=== PATIENT | male | born 1980 | race Caucasian/White ===

== ENCOUNTER 2021-06-08 02:05 | Inpatient (IN) | payer OTHER, SELFPAY ==
--- NOTE | ~2021-06-08 | XR_ITS ---
XR abdomen NG/feed tube insert DATE: 06/08/2021 06:32 INDICATION: NG tube insertion TECHNIQUE: Portable upright AP abdomen on 06/08/2021 at 0627 hours COMPARISON: 06/04/2021 CT abdomen pelvis FINDINGS: NG tube extends approximately 8.5 cm into the proximal stomach, the proximal side-port situ ated at the diaphragmatic hiatus. Advancement of the tube is recommended. There is gaseous distention of small bowel with air-fluid levels. The psoas shadows are intact. No visceromegaly is evident. The lung bases appear clear. IMPRESSION: NG tube in proximal stomach, proximal side-port at diaphragmatic hiatus; tube advancement is recommended. Reviewed, dictated and finalized at [facility] Reviewed, dictated and finalized at [facility]. [facility] SORTER IMPRESSION: NG tube in proximal stomach, proximal side-port at diaphragmatic hi atus; tube advancement is recommended.
--- NOTE | ~2021-06-08 | CT_ITS ---
EXAMINATION: CT abdomen pelvis w con DATE: 06/08/2021 03:27 INDICATION: Abdominal pain, emesis TECHNIQUE: Computed tomography (CT) of the abdomen and pelvis was performed with 100 cc Omnipaque 350 intravenous contrast. Automated exposure control and iterative reconstruction technique were employe d. Exam dose: 811.02 mGy-cm total exam DLP. COMPARISON: None. FINDINGS: The lung bases are clear. Normal heart size. No pericardial or pleural effusion. 11 mm 13 mm stones are noted in the dependent aspect of the gallbladder. No gallbladder wall thickeni ng or pericholecystic fluid or fat stranding or bile duct or pancreatic duct dilatation is evident. No hepatic, splenic or pancreatic space-occupying mass lesion is detected. No pancreatic calcificatio n. No splenomegaly. Normal morphology of the adrenal glands. No renal mass lesion or urinary tract calculus or hydroureteronephrosis. Normal caliber of the abdominal aorta. No intraperitoneal or retroperitoneal or pelvic mass lesion or adenopathy or ascites. There are numerous fluid containing nondilated small bowel segments, with multiple small air-fluid le vels, with transition point in the left lower quadrant anteriorly.. Normal appendix. No bowel wall thickening, pneumatosis or intraperitoneal free air. The urinary bladder and prostate gland are unremarkable. IMPRESSION: Large intermediate grade small bowel obstruction in the anterior left lower quadrant susan barry enteritis or adynamic ileus Normal appendix Cholelithiasis Reviewed, dictated and finalized at [facility] Reviewed, dictated and finalized at [facility]. ER DEVELOPMENT DIRECTOR IMPRESSION: Large intermediate grade small bowel obstruction in the anterior l eft lower quadrant versus enteritis or adynamic ileus Normal appendix Cholelithiasis
[2021-06-08 02:07] VITALS: BP 171/105; PULSE 67; RESP 16; TEMP 36.9; O2SAT 100
--- NOTE | 2021-06-08 02:16 | ED.ABDPAIN ---
HPI - Abdominal Pain General Chief Complaint: Abdominal Pain Stated Complaint: abdominal pain Time Seen by Provider: 06/08/21 02:15 Source: patient Mode of arrival: ambulatory Limitations: no limitations History of Present Illness HPI narrative: Patient is a 40-year-old male complaining of abdominal pain, mid abdomen, dull, 8 out of 10, nonradiating accompanied by nausea and vomiting started tonight. Patient denies any chest pain, shortness of breath, diarrhea, urinary symptoms, fever or chills. Related Data Allergies Allergy/AdvReac Type Severity Reaction Status Date / Time No Known Allergies Allergy Verified 06/08/21 03:10 Review of Systems Review of Systems: All systems reviewed & are unremarkable except as noted in HPI and below Constitutional: Constitutional: Denies body ache(s), Denies chills, Denies excessive sweating, Denies fatigue, Denies fever(s), Denies headache(s), Denies lethargy, Denies malaise, Denies weakness and Denies weight loss Eyes: Eyes: Denies blurry vision, Denies change in vision and Denies loss of vision ENT: Denies dizziness, Denies ear discharge, Denies headache(s), Denies lip swelling, Denies epistaxis, Denies nasal congestion, Denies neck pain, Denies throat swelling and Denies tongue swelling Cardiovascular: Cardiovascular: Denies chest pain, Denies chest pain at rest, Denies chest pain with activity, Denies diaphoresis, Denies rapid heart rate, Denies edema, Denies irregular heart rhythm, Denies lightheadedness, Denies palpitations, Denies dyspnea and Denies dyspnea on exertion Respiratory: Respiratory: Denies chest congestion, Denies cough, Denies hemoptysis, Denies dyspnea and Denies dyspnea on exertion Gastrointestinal: Gastrointestinal: Denies melena, Denies hematochezia, Denies diarrhea and Denies hematemesis Musculoskeletal: Musculoskeletal: Denies abnormal gait, Denies deformity, Denies joint swelling, Denies limited range of motion, Denies neck pain and Denies numbness Neurologic: Denies Abnormal speech present, Denies abnormal gait, Denies confusion, Denies dizziness, Denies headache(s), Denies focal weakness, Denies loss of vision, Denies numbness, Denies Other visual disturbances, Denies Sensory deficit (Neuro) and Denies weakness Psychiatric: Psychiatric: Denies confusion, Denies depression, Denies auditory hallucinations, Denies homicidal ideation and Denies suicidal ideation Endocrine: Endocrine: Denies cold intolerance, Denies excessive sweating, Denies fatigue, Denies heat intolerance and Denies palpitations Hematologic/Lymphatic: Hematologic/Lymphatic: Denies easy bleeding and Denies easy bruising Allergic/Immunologic: Allergic/Immunologic: Denies lip swelling, Denies throat swelling and Denies tongue swelling PMFSH Comments Past medical history: None Family history: None Social history: Non-smoker no EtOH or drug use Exam Const: General: cooperative, healthy appearing, comfortable, no acute distress, well developed, alert and awake; No confusion Orientation/consciousness: oriented to person, oriented to place, oriented to time, patient oriented x3 and No confusion Limitations: no limitations HENMT: Head: normal to inspection, normocephalic and atraumatic Ears: hearing grossly normal bilaterally, TM normal on the right and TM normal on the left General nose exam: Normal external nose present, Normal nares present and No nasal discharge present Face and sinus: normal facial exam Mouth: Yes Normal oral and palatal mucosa present, Yes lip normal, Yes tongue normal and Yes oropharynx normal Throat: posterior oropharynx normal, tonsils normal and uvula midline Eyes: General: appearance normal, both eyes and all related structures Pupils: Equal, round and reactive pupils present EOM: EOMs intact bilaterally Neck: Neck: normal visual inspection, full ROM, no lymphadenopathy and no meningeal signs Chest: Chest palpation & inspection: normal inspection of the chest Resp: Effo
[2021-06-08] MEDS: SODIUM CHLORIDE 0.9% IV 1,000 ML 999 ML IV CONT (02:37)
[2021-06-08 02:49] LABS: Basophils Absolute Auto 0.1 K/mm3 (0.0-0.1); Basophils Percent Auto 0.3 % (0.2-1.2); Eosinophils Absolute Auto 0.1 K/mm3 (0-0.3); Eosinophils Percent Auto 0.4 % (0-4.4); Hematocrit 47.4 % (42.0-52.0); Hemoglobin 16.4 g/dL (14.0-18.0); Immature Granulocyte Absolute 0.09 K/mm3 (0.00-0.031); Immature Granulocyte Percent A 0.5 % (0-0.5); Lymphocytes Percent Auto 13.8 % (18.3-44.2); Mean Corpuscular HGB Conc 34.6 g/dl (32-36); Mean Corpuscular Hemoglobin 33.3 pg (26-34); Mean Corpuscular Volume 96.3 fl (80-100); Mean Platelet Volume 11.5 fl (7.4-10.4); Monocytes Absolute Auto 0.9 K/mm3 (0.1-0.6); Monocytes Percent Auto 4.7 % (2.6-8.5); Neutrophils Absolute Auto 14.5 K/mm3 (1.3-6.7); Neutrophils Percent Auto 80.3 % (45.5-73.1); Platelet Count Result 200 k/mm3 (150-375); Red Blood Count 4.92 M/mm3 (4.6-6.20); Red Cell Distribution Width 13.1 % (11.5-14.5); White Blood Count 18.1 K/mm3 (4.5-10.0)
[2021-06-08 03:01] LABS: Alanine Aminotransferase 29 U/L (4-50); Albumin Level 4.5 g/dL (3.5-5.1); Alkaline Phosphatase 115 U/L (38-126); Anion Gap 9 mmol/L (8-16); Aspartate Amino Transferase 26 U/L (17-59); Bilirubin,Total 0.4 mg/dL (0.2-1.3); Blood Urea Nitrogen 8 mg/dL (9-20); Calcium 9.1 mg/dL (8.4-10.2); Carbon Dioxide 24 mmol/L (22-30); Chloride 106 mmol/L (98-107); Estimated CRCL calculation 116 ml/min; Estimated Glomerular Filt Rate > 60; Glucose 142 mg/dL (65-110); Lipase 183 U/L (23-300); Potassium 3.7 mmol/L (3.4-5.0); Sodium 139 mmol/L (137-145)
[2021-06-08 03:03] LABS: Lactic Acid Reflex 1.7 mmol/L (0.7-2.1)
[2021-06-08] MEDS: MORPHINE SULFATE (*CRX) 2 MG/ML INJ IV PUSH (03:10)
[2021-06-08] MEDS: PROMETHAZINE HCL 25 MG/ML AMPUL 12.5 MG IV PUSH (03:12)
[2021-06-08] MEDS: LACTATED RINGERS 1,000 ML 125 ML IV CONT ×2 (05:02→13:43)
[2021-06-08 05:05] VITALS: BP 165/93; PULSE 65; RESP 22; O2SAT 98
[2021-06-08] MEDS: HYDROmorphone HCL INJ (*CRX) 1 MG/ML SYR 0.5 MG IV PUSH (05:06)
--- NOTE | 2021-06-08 06:01 | PC.NURSE ---
attempted to call report nurse will call back
[2021-06-08 06:16] VITALS: BP 163/95; PULSE 65; RESP 18; O2SAT 98
[2021-06-08 07:27] VITALS: BP 158/86; PULSE 63; RESP 18; TEMP 36.7; O2SAT 99
--- NOTE | 2021-06-08 07:43 | PC.NURSE ---
0650 Pt arrived from the ED to room 321. DX bowel obstruction. Pt has NG tube in the right nare, connected to low intermittent suction. Pt denies discomfort at this time. Pt encouraged to inform nurse if need assist with anything and plan of care discussed, verbalize understanding. No acute distress noted.
[2021-06-08 08:00] VITALS: O2SAT 98; BMI 29.9
--- NOTE | 2021-06-08 09:09 | PM.IMHP ---
H&P: HPI History of Present Illness Date/Time: 06/08/21 09:09 The patient is a 40-year-old male presenting to the emergency department complaining of severe crampy abdominal pain, intractable nausea and vomiting. The patient reports he felt bloated and full during the day yesterday, however was able to tolerate food and had a normal bowel movement. The patient denies any pain during the day yesterday. The patient reports that approximately 10:00 p.m. he developed severe crampy abdominal pain that was diffuse in nature. The patient tried some prune juice, which actually made the pain worse. The patient had multiple episodes of nausea and vomiting. The patient reports he tried an enema without results. The patient denies any previous episodes in the past. Chief Complaint: Abdominal pain, nausea and vomiting Review of Systems Constitutional: Constitutional: Denies anorexia, Denies chills, Reports fatigue, Denies fever(s), Reports lethargy, Denies malaise, Denies poor appetite, Denies weakness, Denies weight gain and Denies weight loss Eyes: Eyes: Reports no additional eye complaints ENT: Reports system reviewed and no additional complaints, except as documented Cardiovascular: Cardiovascular: Reports no additional cardiovascular complaints Respiratory: Respiratory: Reports no additional respiratory complaints Gastrointestinal: Gastrointestinal: Reports as per HPI, Reports abdominal pain, Reports belching, Reports bloating, Reports GI cramping, Reports early satiety, Reports nausea and Reports vomiting Genitourinary: Genitourinary: Reports no additional male genitourinary complaints Musculoskeletal: Musculoskeletal: Reports no additional musculoskeletal complaints Integumentary/Breasts: Skin/Breast: Reports system reviewed and no additional complaints, except as docu Neurologic: Reports system reviewed and no additional complaints, except as documented Psychiatric: Psychiatric: Reports no additional psychiatric complaints Endocrine: Endocrine: Reports no additional endocrine complaints Hematologic/Lymphatic: Hematologic/Lymphatic: Reports no additional hematologic/lymphatic complaints Allergic/Immunologic: Allergic/Immunologic: Reports no additional allergic/immunologic complaints PMFSH Comments PMH - none Surgery - no abd surgeries FH - no FH of CRC, IBD SH - denies tobacco use, no ilicit drugs Meds Home Medications and Allergies Allergies Allergy/AdvReac Type Severity Reaction Status Date / Time No Known Allergies Allergy Verified 06/08/21 03:10 Vital Signs Vital Signs - 24 hr 06/08/21 02:07 06/08/21 05:05 06/08/21 06:16 Temperature 36.9 C Pulse Rate 67 65 65 Respiratory Rate 16 22 H 18 Blood Pressure 171/105 H 165/93 H 163/95 H Pulse Oximetry 100 98 98 06/08/21 07:27 Temperature 36.7 C Pulse Rate 63 Respiratory Rate 18 Blood Pressure 158/86 H Pulse Oximetry 99 Exam Const: General: cooperative, comfortable and no acute distress Nutritional Appearance: obese Orientation/consciousness: patient oriented x3 Limitations: no limitations HENMT: Head: normal to inspection, normocephalic and atraumatic Ears: hearing grossly normal bilaterally General nose exam: Normal external nose present Face and sinus: normal facial exam Mouth: Yes Normal oral and palatal mucosa present and Yes moist mucous membranes Eyes: General: appearance normal, both eyes and all related structures Pupils: Equal, round and reactive pupils present EOM: EOMs intact bilaterally Neck: Neck: normal visual inspection, full ROM and no lymphadenopathy Chest: Chest palpation & inspection: normal inspection of the chest Resp: Effort & Inspection: normal respiratory effort Auscultation: clear to auscultation bilaterally Cardio: Rate: regular rate Rhythm: regular rhythm GI: Inspection: normal to inspection and distended GI Palp: Yes abdominal tenderness, No Tenderness to palpation present (GI), No Guarding due to palpat
--- NOTE | 2021-06-08 09:26 | ADMGEN ---
This patient, Jase Wong, was admitted to [facility] Surg Room 321-02 at 0650. Patient/family oriented to hospital policies and general routines including ID bracelet, bed and alarms, visiting hours, pain management, procedures, bathroom and other care routines, personal items, smoking policy, room service/diet, and visiting hours. Information on how to activate the Rapid Response Team has been discussed. Patient/Family are encouraged to report perceived risks to care and to ask questions if they do not understand what they are told or what they should do.
[2021-06-08 14:00] VITALS: BP 152/90; PULSE 93; RESP 16; TEMP 37.2; O2SAT 95
[2021-06-08] MEDS: BISACODYL 5 MG TABLET EC 10 MG PO (16:20)
--- NOTE | 2021-06-12 13:28 | P.DS_ITS ---
DS: Admitting Diagnosis Discharge Date 06/08/21 Admitting Diagnosis Small-bowel obstruction DS: Discharge Diagnosis Discharge Diagnosis (1) Small bowel obstruction: Code(s): K56.609 - Unspecified intestinal obstruction, unspecified as to partial versus complete obstruction Status: Acute Assessment and Plan: likely secondary to viral gastroenteritis, symptoms resolved with conservative management, tolerating diet and having bowel movements at time of discharge, follow up p.r.n. DS: Summary Hospital Course Reason for hospitalization: small-bowel obstruction Hospital Course: The patient is a 40 year old male presenting to the emergency department complaining of severe abdominal pain, intractable nausea and vomiting. Workup in the emergency department, including imaging, was significant for partial small bowel obstruction, leukocytosis. The patient was admitted to the surgical service and started on conservative management with bowel rest and NG tube decompression. Upon evaluation in the morning, the patient was feeling significantly better. The NG tube was clamped and the patient was started on clear liquid diet. Patient was able to tolerate this without issue and the NG tube was subsequently removed. Over the day, the patient was able to tolerate regular food and was having normal bowel function. The patient will now be discharged home with follow-up as needed. Status at Discharge Functional status at discharge: independent ambulation Overall status at discharge: patient is progressing back to baseline Time Spent with Patient Time attestation: Total time spent providing and/or coordinating discharge services: Time spent: Less than 30 minutes Exam Const: General: cooperative, comfortable and no acute distress Orientation/consciousness: patient oriented x3 Resp: Effort & Inspection: normal respiratory effort Auscultation: clear to auscultation bilaterally Cardio: Rate: regular rate Rhythm: regular rhythm GI: Inspection: normal to inspection and non-distended GI Palp: Yes Soft to palpation, No Tenderness to palpation present (GI), No Guarding due to palpation present (GI) and No Rigid due to palpation Discharge Plan Discharge Attending physician on discharge: Heather Sims Consulting providers: Ousmane Aparicio ; Karri Squires Discharging Clinician: Colt Ruffin Patient Disposition: Home, Self-Care Activity: unlimited Diet: as tolerated Discharge Instructions: Return to ED for any recurrent symptoms Take OTC laxative like Milk of Magnesia or MiraLax as needed for constipation Patient Instructions: Antibiotic Form, Depression (DC), Bowel Obstruction (GEN) Stand Alone Forms: General Discharge Information Follow-up/Referrals: Ousmane Aparicio MD [Physician] - Follow Up with Primary Dr Date of admission: 06/08/21 04:43 Primary Care Provider: PHYSICIAN,ACCOUNT SERVICE ASSOCIATE Admitting Provider: Heather Sims Attending physician on admission: Heather Sims Condition: Improved
== END 2021-06-08 19:10 | disposition home or self-care (01) | DRG 392 ==
LOC: ANHED 04:36 → ANH3MEDSUR 05:26
PROVIDERS: Admitting Provider Surgery; Emergency Provider Emergency Medicine; Visit Provider Surgery
DX: A08.4 Viral intestinal infection, unspecified (principal)
CPT/HCPCS: 36415; 74177; 80053; 83605; 83690; 85025; 96361; 96374; 96375; 99285; A9270; J1170; J2270; J2550; J7030; J7120; Q9967

== ENCOUNTER 2021-06-13 02:04 | Day surgery (SDC) | payer OTHER, SELFPAY ==
[2021-06-13] VITALS (20 sets, daily range): BP systolic 128–176; BP diastolic 76–109; PULSE 63–87; RESP 12–20; TEMP 36.6–37.1; O2SAT 92–100; BMI 28.5
--- NOTE | ~2021-06-13 | CT_ITS ---
EXAMINATION: CT abdomen pelvis w con EXAM DATE: 06/13/2021 05:17 INDICATION: Abd pain. TECHNIQUE: Spiral CT of the abdomen and pelvis was performed following intravenous injection of 100 m L Omnipaque 350. Axial, coronal and sagittal images of the abdomen and pelvis were reviewed. The do se-length product (DLP) for this examination was 584.66 mGy-cm. The exposure was tailored according to patient size (auto mA exposure control), and iterative reconstruction (ASIR) was used as additiona l dose reduction technique. Comparison is made to prior examination from 06/08/2021. FINDINGS: The liver, spleen, adrenal glands and pancreas are unremarkable. There are 2 peripherally calcified gallstones. The gallbladder wall is indistinct, but only mild gallbladder distention. Possi ble cholecystitis. Recommend ultrasound. Portal and splenic veins are patent. Kidneys enhance symme trically. There is no hydronephrosis. The prostate is unremarkable. The bladder is unremarkable. There is no retroperitoneal or pelvic lymphadenopathy. Small umbilical fat-containing hernia. There are no findings to suggest appendicitis. The stomach and small bowel are unremarkable, previou sly seen dilated mid small bowel have normalized.. There is expected amount of colonic stool. No f ree intraperitoneal gas. The heart is normal in size. There are no pericardial or pleural effusion s. The lung bases are unremarkable. There are no osteoblastic or osteolytic lesions identified. IMPRESSION: 1. Cholelithiasis, development of indistinct gallbladder wall but only mild distention. Possible cho lecystitis. Consider ultrasound or HIDA scan. 2. Resolution of previously seen mildly dilated small bowel. Reviewed, dictated and finalized at location A. DOUGH ROLLER IMPRESSION: 1. Cholelithiasis, development of indistinct gallbladder wall but only mild di stention. Possible cholecystitis. Consider ultrasound or HIDA scan. 2. Resolution of previously seen mildly dilated small bowel.
--- NOTE | ~2021-06-13 | XR_ITS ---
EXAMINATION: XR cholangiogram surg 1st inj EXAM DATE: 06/13/2021 14:38 INDICATION: Laparoscopic cholecystectomy. TECHNIQUE: Multiples Cine fluoroscopic images were obtained during injection of the cystic duct duri ng laparoscopic cholecystectomy. Procedure performed by Dr. Ziggy Pineda MD on 06/13/2021 14:3 8, radiologist was not present. Total fluoroscopic time of 0.5 minutes. The DAP for this procedure was 12.8 mGym2. A total of 274 images sent to PACS from the exam. FINDINGS: The cystic duct has been injected. There are no intraluminal filling defects within or st rictures of the common bile duct or opacified hepatic ducts. There is an accessory hepatic duct which enters into the proper hepatic duct, located above 5 surgical clips which are visualized. This is a congenital variant. Forward flow of contrast confirmed into the duodenum. IMPRESSION: Accessory right hepatic lobe duct arising from proper hepatic duct. No filling defects or biliary obstruction. Reviewed, dictated and finalized at location A. OSIVES ENGINEER
--- NOTE | ~2021-06-13 | US_ITS ---
EXAMINATION: US abdomen limited EXAM DATE: 06/13/2021 08:16 INDICATION: Abdominal pain, abnormal CT scan. TECHNIQUE: Multiple grayscale and Doppler images of the abdomen right upper quadrant were obtained (b y a technologist who performed the scan) and subsequently reviewed. There is no prior study for tacho murray. FINDINGS: The pancreatic head and body are normal in appearance. The pancreatic tail is not visualized. The l iver has normal echogenicity and contour. There are no focal liver lesions identified. There is no evidence of intrahepatic biliary duct dilation. Portal venous flow was seen in the hepatopedal, nor mal direction and has normal Doppler waveform. No right-sided hydronephrosis. Common bile duct measures 5 mm, which is normal. There is cholelithiasis. Gallbladder has mild disten tion. Mild gallbladder wall thickening. No pericholecystic fluid. A sonographic Barney's sign was dem onstrated. IMPRESSION: Cholelithiasis, mild gallbladder wall thickening and sonographic Barney sign demonstrated . Findings suspicious for acute cholecystitis. I discussed this case with Jd Spicer DO at 06/13/2021 08:23 GUARD RAIL INSTALLER. Reviewed, dictated and finalized at location A. D RAIL INSTALLER IMPRESSION: Cholelithiasis, mild gallbladder wall thickening and sonographic Mu rphy sign demonstrated. Findings suspicious for acute cholecystitis. I discussed this case with Jd Spicer DO at 06/13/2021 08:23 GUARD RAIL INSTALLER.
--- NOTE | 2021-06-13 03:39 | ED.GENADULT ---
HPI - General Adult General Chief complaint: Abdominal Pain Stated complaint: blocked bowel Time Seen by Provider: 06/13/21 03:32 Source: RN notes reviewed History of Present Illness HPI narrative: Patient presents emergency department from home for abdominal pain. Patient states that pain began this evening is located in the right side of the abdomen described as sharp and stabbing in nature pain does not radiate. He states has been associated nausea vomiting. He states his last bowel movement was yesterday and states he did try taking a laxative. Patient states he is admitted for a bowel obstruction last week at this facility that resolved with an NG tube and he got home been feeling better till today he has any fevers or chills chest pain shortness of breath or any other symptoms Related Data Allergies Allergy/AdvReac Type Severity Reaction Status Date / Time ragweed pollen Allergy Mild Watery Eye Verified 06/13/21 10:13 Review of Systems Review of Systems: Gen.: Denies fevers or chills ENT: Denies congestion Respiratory: Denies shortness of breath or cough CV: Denies chest pain or palpitations GI: See HPI denies burning, urgency, frequency or hematuria Musculoskeletal: Denies back pain or muscle pain Neuro: Denies numbness, tingling, weakness or focal weakness Skin: Denies rash Except as documented, all other systems reviewed and negative [facility] Past Medical History Medical History No pertinent past medical history Surgical History Surgical History No significant past surgical history Family History Family History Other No pertinent family history Social History Social History Smoking packs per day: 0.5 Smoking cigarettes per day: 10.0 Years smoked: 20 Smoking pack-years: 10.00 Smoking status: Current every day smoker Tobacco type: cigarettes Second hand tobacco smoke exposure: Yes Alcohol intake: current Alcohol use details: 2 drinks per month Substance use: never Occupation/Education: occupation Gender identity (if verbalized by the patient): Male Spiritual care concerns: No Exam Narrative: APPEARANCE: No acute distress, nontoxic, resting in bed HEENT: Normocephalic, atraumatic, OMM RESPIRATORY: No respiratory distress, clear to auscultation bilaterally with no rhonchi wheezing or rales CARDIOVASCULAR: RRR s murmur ABDOMINAL: Soft mildly distended diffusely tender palpation with increased tenderness in the right upper quadrant no rebound or guard MUSCULOSKELETAl: Moves all extremities. No clubbing, cyanosis or edema. NEURO: Awake and alert. Following commands, speech normal, no focal deficits SKIN:: Warm, dry. Normal Color PSYCHIATRIC: Normal affect/mood Course Course Emergency Course: Patient states he is feeling better at this time states he still having pain but not as severe as prior repeat abdominal exam shows tenderness in the right upper quadrant Discussed with Dr. Pineda presentation work-up agrees with admission at this time request patient started on Zosyn Discussed with patient and family results of workup and diagnosis. Discussed need for admission. Patient and family understand and agree to current treatment plan Vital Signs Vital signs: Vital Signs Temperature 97.8 F 06/13/21 02:06 Pulse Rate 71 06/13/21 02:06 Respiratory Rate 20 06/13/21 02:06 Blood Pressure 173/95 H 06/13/21 02:06 Pulse Oximetry 99 06/13/21 02:06 Temperature 98.3 F 06/14/21 07:13 Pulse Rate 79 06/14/21 08:00 Respiratory Rate 12 06/14/21 08:00 Blood Pressure 153/80 H 06/14/21 07:13 Pulse Oximetry 95 06/14/21 08:00 Medical Decision Making Vital Signs Vital Signs: Vital Signs Temperature 97.8 F 06/13/21 02:06 Pulse Ra
[2021-06-13] MEDS: ONDANSETRON INJ 4 MG/2 ML VIAL IV PUSH (03:50)
[2021-06-13] MEDS: SODIUM CHLORIDE 0.9% IV 1,000 ML 999 ML IV CONT (03:51)
[2021-06-13 03:57] LABS: Basophils Absolute Auto 0.1 K/mm3 (0.0-0.1); Basophils Percent Auto 0.4 % (0.2-1.2); Eosinophils Absolute Auto 0.1 K/mm3 (0-0.3); Eosinophils Percent Auto 0.5 % (0-4.4); Hematocrit 46.1 % (42.0-52.0); Hemoglobin 15.9 g/dL (14.0-18.0); Immature Granulocyte Absolute 0.06 K/mm3 (0.00-0.031); Immature Granulocyte Percent A 0.4 % (0-0.5); Lymphocytes Absolute Auto 1.88 K/mm3 (0.9-3.2); Lymphocytes Percent Auto 12.8 % (18.3-44.2); Mean Corpuscular HGB Conc 34.5 g/dl (32-36); Mean Corpuscular Hemoglobin 33.4 pg (26-34); Mean Corpuscular Volume 96.8 fl (80-100); Mean Platelet Volume 11.5 fl (7.4-10.4); Monocytes Absolute Auto 0.7 K/mm3 (0.1-0.6); Neutrophils Absolute Auto 11.9 K/mm3 (1.3-6.7); Neutrophils Percent Auto 80.9 % (45.5-73.1); Platelet Count Result 205 k/mm3 (150-375); Red Blood Count 4.76 M/mm3 (4.6-6.20); Red Cell Distribution Width 13.1 % (11.5-14.5); White Blood Count 14.7 K/mm3 (4.5-10.0)
[2021-06-13 04:00] LABS: Add Urine Microscopic? YES; Appearance Urine Clear (Clear); Bilirubin Urine Negative (Negative); Blood Urine Negative (Negative); Calcium Oxalate Crystals Urine Present /hpf; Color Urine Yellow (Yellow); Glucose Urine UA Negative (Negative); Ketones Urine Negative (Negative); Leukocyte Esterase Ur Negative LEU/UL (Negative); Mucus Urine Rare /lpf; Nitrate Urine Negative (Negative); Protein Urine Negative (Negative); Squamous Epithelial Cell Urine Rare /hpf (Few); WBC Urine 0-3 /hpf
[2021-06-13] MEDS: MORPHINE SULFATE (*CRX) 4 MG/ML INJ IV PUSH ×2 (04:01→09:03)
[2021-06-13 04:11] LABS: Lactic Acid Reflex 0.7 mmol/L (0.7-2.1)
[2021-06-13 04:45] LABS: Lipase 147 U/L (23-300)
[2021-06-13 04:59] LABS: Alanine Aminotransferase 34 U/L (4-50); Albumin Level 4.5 g/dL (3.5-5.1); Alkaline Phosphatase 114 U/L (38-126); Anion Gap 3 mmol/L (8-16); Aspartate Amino Transferase 30 U/L (17-59); Bilirubin,Total 0.3 mg/dL (0.2-1.3); Blood Urea Nitrogen 9 mg/dL (9-20); Carbon Dioxide 27 mmol/L (22-30); Chloride 105 mmol/L (98-107); Estimated CRCL calculation 104 ml/min; Estimated Glomerular Filt Rate > 60; Glucose 141 mg/dL (65-110); Potassium 3.9 mmol/L (3.4-5.0); Sodium 135 mmol/L (137-145)
--- NOTE | 2021-06-13 05:17 | PC.NURSE ---
Pt taken to CT via stretcher at this time.
[2021-06-13] MEDS: KETOROLAC 30 MG/ML VIAL (*BKC) IV PUSH (06:02)
--- NOTE | 2021-06-13 07:00 | PC.NURSE ---
Assumed care of pt. at this time. report from Awais baldwin
--- NOTE | 2021-06-13 09:38 | ADMGEN ---
This patient, Jase Wong, was admitted to [facility] Surgery-4. Patient/family oriented to hospital policies and general routines including ID bracelet, bed and alarms, visiting hours, pain management, procedures, bathroom and other care routines, personal items, smoking policy, room service/diet, and visiting hours. Information on how to activate the Rapid Response Team has been discussed. Patient/Family are encouraged to report perceived risks to care and to ask questions if they do not understand what they are told or what they should do.
[2021-06-13] MEDS: SODIUM CHLORIDE 0.9% IV 1,000 ML 125 ML IV CONT (10:19)
--- NOTE | 2021-06-13 10:39 | PM.IMHP ---
H&P: HPI History of Present Illness Date/Time: 06/13/21 10:39 Chief Complaint: RUQ abdominal pain, nausea, vomiting Narrative: This is a 40-year-old male who presented to the emergency department with complaints of right upper quadrant abdominal pain, nausea, and vomiting. The patient was recently hospitalized on 06/08/2021-06/09/21. He presented with similar symptoms at that time and his CT scan showed cholelithiasis, and possible small-bowel obstruction versus ileus. He was treated with NG tube decompression and bowel rest. His symptoms resolved and he was advanced on a diet and discharged feeling well. The patient reports he had been eating soft foods up until yesterday. For supper, he had a pork loin, carrots, and potatoes. About 2 hours later, he began to have right upper quadrant and epigastric abdominal pain that radiated up towards the right side of his chest. He developed nausea and had multiple episodes of vomiting. His symptoms felt similar to when he presented on [facility]. Due to the unrelenting pain, he presented to the ER for evaluation. CT scan of the abdomen and pelvis showed possible cholecystitis with cholelithiasis and resolution of the small-bowel dilatation noted on the previous CT scan. Labs showed a white blood cell count of 14,700 and otherwise unremarkable labs. Our service was consulted by the ED physician for evaluation of possible acute cholecystitis. A right upper quadrant abdominal ultrasound was ordered today and suggested findings of probable acute calculus cholecystitis. The patient was started on IV Zosyn, IV fluids, and IV analgesics. He is now seen in the preoperative area as an overflow patient. He reports his pain has improved since receiving pain medication. His nausea has resolved. No other complaints at this time. No previous abdominal surgeries. His blood pressure has been slightly elevated, and he denies previous diagnosis of hypertension. He currently does not have a primary care provider. Review of Systems Review of Systems: All systems reviewed & are unremarkable except as noted in HPI and below Constitutional: Constitutional: Reports as per HPI, Denies chills, Denies fatigue and Denies fever(s) Eyes: Eyes: Reports no additional eye complaints ENT: Reports system reviewed and no additional complaints, except as documented and Reports Normal hearing present Cardiovascular: Cardiovascular: Reports no additional cardiovascular complaints, Denies chest pain, Denies leg edema and Denies dyspnea Respiratory: Respiratory: Reports no additional respiratory complaints, Denies cough and Denies dyspnea Gastrointestinal: Gastrointestinal: Reports as per HPI, Reports no additional gastrointestinal complaints, Reports abdominal pain, Denies bloating, Denies change in bowel habits, Denies change in stool character, Denies constipation, Denies diarrhea, Reports nausea and Reports vomiting Genitourinary: Genitourinary: Denies hematuria and Denies dysuria Musculoskeletal: Musculoskeletal: Denies deformity and Denies joint swelling Integumentary/Breasts: Skin/Breast: Denies wounds and Denies jaundice Neurologic: Reports system reviewed and no additional complaints, except as documented, Denies dizziness, Denies focal weakness, Denies numbness and Denies tingling Psychiatric: Psychiatric: Denies anxiety and Denies depression PMFSH Past Medical History Medical History No pertinent past medical history Surgical History Surgical History No significant past surgical history Family History Family History Other No pertinent family history Social History Social History Smoking packs per day: 0.5 Smoking cigarettes per day: 10.0 Years smoked: 20 Smoking pack-ye
--- NOTE | 2021-06-13 12:00 | WPDANESEPPF ---
Anes - Initial Pre Proc Eval Procedure: Operation Date: 06/13/21 14:00 Proposed Procedures p Laparoscopic Cholecystectomy,Possible Intraoperative Cholangiogram,Possible Open - Ziggy Pineda MD Date/Time: 06/13/21 12:00 Surgeon: Ziggy Pineda MD Pre Op Diagnosis: Cholecystitis Patient Data Age: 40 Gender: M Height: 1.83 m Weight: 95.254 kg Last Vital Signs Temp 36.6 C 06/13/21 02:06 Pulse 72 06/13/21 09:05 Resp 14 06/13/21 09:05 BP 170/89 H 06/13/21 09:05 Pulse Ox 98 06/13/21 09:05 Allergies Allergy/AdvReac Type Severity Reaction Status Date / Time ragweed pollen Allergy Mild Watery Eye Verified 06/13/21 10:13 Laboratory Tests 06/13/21 06/13/21 06/13/21 03:51 03:51 03:51 WBC 14.7 K/mm3 H K/mm3 (4.5-10.0) RBC 4.76 M/mm3 M/mm3 (4.6-6.20) Hgb 15.9 g/dL g/dL (14.0-18.0) Hct 46.1 % % (42.0-52.0) MCV 96.8 fl fl (80-100) MCH 33.4 pg pg (26-34) MCHC 34.5 g/dl g/dl (32-36) RDW 13.1 % % (11.5-14.5) Plt Count 205 k/mm3 k/mm3 (150-375) MPV 11.5 fl H fl (7.4-10.4) Immature Gran % (Auto) 0.4 % % (0-0.5) Neut % (Auto) 80.9 % H % (45.5-73.1) Lymph % (Auto) 12.8 % L % (18.3-44.2) Mcdonough % (Auto) 5.0 % % (2.6-8.5) Eos % (Auto) 0.5 % % (0-4.4) Baso % (Auto) 0.4 % % (0.2-1.2) Lymph # (Auto) 1.88 K/mm3 K/mm3 (0.9-3.2) Mcdonough # (Auto) 0.7 K/mm3 H K/mm3 (0.1-0.6) Eos # (Auto) 0.1 K/mm3 K/mm3 (0-0.3) Baso # (Auto) 0.1 K/mm3 K/mm3 (0.0-0.1) Abs Immat Gran (auto) 0.06 K/mm3 H K/mm3 (0.00-0.031) Absolute Neuts (auto) 11.9 K/mm3 H K/mm3 (1.3-6.7) Absolute Nucleated RBC 0.0 K/mm3 K/mm3 (0.0-0.012) Nucleated RBC % 0.0 % % (0.0-0.2) Sodium 135 mmol/L L mmol/L (137-145) Potassium 3.9 mmol/L mmol/L (3.4-5.0) Chloride 105 mmol/L mmol/L (98-107) Carbon Dioxide 27 mmol/L mmol/L (22-30) Anion Gap 3 mmol/L L mmol/L (8-16) BUN 9 mg/dL mg/dL (9-20) Creatinine 0.90 mg/dL mg/dL (0.7-1.3) Estim Creat Clear Calc 104 ml/min ml/min Estimated GFR > 60 (59 - ) Glucose 141 mg/dL H mg/dL (65-110) Lactic Acid Calcium 9.0 mg/dL mg/dL (8.4-10.2) Total Bilirubin 0.3 mg/dL mg/dL (0.2-1.3) AST 30 U/L U/L (17-59) ALT 34 U/L U/L (4-50) Alkaline Phosphatase 114 U/L U/L (38-126) Total Protein 7.0 g/dL g/dL (6.3-8.2) Albumin 4.5 g/dL g/dL (3.5-5.1) Lipase Urine Color Yellow (Yellow) Urine Appearance Clear (Clear) Urine pH 5.0 (5.0-9.0) Ur Specific [place] 1.020 (1.001-1.035) Urine Protein Negative mg/dL mg/dL (Negative) Urine Glucose (UA) Negative mg/dL mg/dL (Negative) Urine Ketones Negative mg/dL mg/dL (Negative) Ur Blood (Man) Negative (Negative) Urine Nitrate Negative (Negative) Urine Bilirubin Negative (Negative) Urine Urobilinogen 2.0 mg/dL H mg/dL (<2.0) Leukocyte Esterase Rfl Negative SANNA/UL SANNA/UL (Negative) Urine RBC 6-10 /hpf H /hpf (0-2) Urine WBC 0-3 /hpf /hpf Ur Squamous Epith Cells Rare /hpf /hpf (Few) Calcium Oxalate Crystal Present /hpf /hpf (None) Urine Mucus Rare /lpf /lpf 06/13/21 06/13/21 03:51 03:51 WBC RBC Hgb Hct MCV MCH MCHC RDW Plt Count MPV Immature Gran % (Auto) Neut % (Auto) Lymph % (Auto) Mcdonough % (Auto) Eos % (Auto) Baso % (Auto) Lymph # (Auto)
[2021-06-13] MEDS: MORPHINE SULFATE (*CRX) 2 MG/ML INJ IV PUSH (12:02)
--- NOTE | 2021-06-13 12:04 | WPDHPUPDATE1 ---
History and Physical Update Update Date/Time: 06/13/21 12:04 History and Physical has been reviewed, including an updated exam of the patient. There are NO changes in the patient's condition. Risks, benefits, and alternatives have been discussed and questions answered. Patient agrees to proceed with procedure.
[2021-06-13] MEDS: LACTATED RINGERS 1,000 ML 30 ML IV CONT ×2 (12:41→15:58)
[2021-06-13] MEDS: BUPIVACAINE HCL 0.5% PF 30 ML VIAL INFILTRATE (13:16)
--- NOTE | 2021-06-13 16:16 | W.PM.PROC2 ---
Procedure Note - Detailed Date of Procedure 06/13/21 Pre-op Diagnosis Acute Cholecystitis with cholelithiasis without obstruction Post-op Diagnosis other (Small Accessory bile duct on cholangiogram) Procedure Performed Laparoscopic cholecystectomy with intraoperative cholangiogram Surgeon Ziggy Pineda MD Stationary Engineer Supervisor Sarabjit CAMACHO.OR Bet Taker Anesthesia general Indications Patient is a 40-year-old male who presented back to the ER today 1 week after a previous presentation at which time gallstones were noted but no significant inflammation on CT scan noted of the gallbladder although he had an ileus possible small bowel obstruction. See history and physical for further details now follow-up CT shows a he the wall the gallbladder and ultrasound confirms what appears to be acute cholecystitis. Therefore, risks benefits possible complications including bleeding, infection, bile duct injury, and possible need for open surgery have been described to the patient and he will follow low-fat diet after surgery. Findings I did specifically look in the left lower quadrant there was no inguinal hernia that was the indirect type. There was no obvious inflammation of the sigmoid and small bowel seemed to be moving easily in the mid abdomen and pelvis on initial exam after placing the laparoscoped in the abdomen and placed the patient Trendelenburg position. Acutely inflamed gallbladder significant edema of the wall of the GB and the perihepatic space noted. Description of Procedure Procedure Details: Patient was seen preoperatively in the holding area and risks, benefits and alternatives confirmed. Patient was taken to the operating room and general anesthesia was induced. A time out was then preformed with the surgery team confirming patient and site of surgery. The abdomen was prepped and draped in the usual sterile fashion. Incision was made just below the umbilicus. Two stay sutures of O- Vicryl were used to elevate the mid-line fascia beneath the umbilicus and a small incision was made under direct vision. The peritoneum was entered. The 12 mm Herndon cannula was introduced under direct vision. First under low flow and then under high flow the abdomen was insufflated with carbon dioxide never exceeding a pressure of 14. Three 5 mm trocars were then introduced under direct vision. The following trocars were introduced under direct vision: a 12 mm in the epigastrium and two 5 mm trocars along the right costal margin. There were significant adhesions of the omentum to the underside of the gallbladder and these were taken down with blunt and sharp dissection. Bovie cautery was used for hemostasis. Significant edema of the gallbladder wall with discoloration of the gallbladder toward whitish color was noted. The gall bladder was grasped and the cystic duct and artery were dissected free and I carefully tried to identify a window of safety with only two other structures in the area being the cystic duct and the cystic artery. However, there was what appeared to be a anterior lying cystic artery inferior to the cystic duct and also a lymphatic or another structure that was tubular posterior to what appeared to be the typical place for the patient's posterior branch cystic artery. Therefore, rather than 2 structures I had for structures and then the liver window. Therefore, I decided to go ahead with a cholangiogram on this structure that I felt was cystic duct. Prior to this the anterior line vessel 2 clips were applied on the patient's side and I cut on the gallbladder side and there was definite back bleeding from this confirming that it was an artery. I then used a 5 mm endo-clip edge plugger to place 2 clips on the patient's side 1 on the gallbladder side on the cystic artery and just 1 clip on the gallbladder side of the cystic duct. A small hole was made in the cystic duct with endoshears and a cholagio-cath introduced. This was held in place with a single 5 mm
[2021-06-13] MEDS: fentaNYL CITRATE INJ (*CRX) 100 MCG/2 ML VIAL 25 MCG IV PUSH ×4 (17:20→17:26)
[2021-06-13] MEDS: LACTATED RINGERS 1,000 ML 100 ML IV CONT (18:00)
[2021-06-13] MEDS: SENNA/DOCUSATE SODIUM TABLET 2 TAB PO (20:54)
[2021-06-13] MEDS: ceFAZolin 2 GM/D5W 50 ML 2 GM/50 ML BAG IVPB (20:54)
[2021-06-13] MEDS: HYDROcodone/acetaminophen (*CRX) 5-325 MG TABLET 1 TAB PO (20:55)
[2021-06-13] MEDS: ACETAMINOPHEN 500 MG TABLET 1000 MG PO (23:19)
[2021-06-14] MEDS: HYDROcodone/acetaminophen (*CRX) 7.5-325 MG TABLET 1 TAB PO ×2 (01:34→08:24)
[2021-06-14] MEDS: ceFAZolin 2 GM/D5W 50 ML 2 GM/50 ML BAG IVPB ×2 (03:07→11:00)
[2021-06-14 03:09] VITALS: BP 126/64; PULSE 82; RESP 16; TEMP 37; O2SAT 94
[2021-06-14] MEDS: HYDROcodone/acetaminophen (*CRX) 5-325 MG TABLET 1 TAB PO ×2 (05:39→13:58)
[2021-06-14 06:27] LABS: Hematocrit 40.8 % (42.0-52.0); Hemoglobin 13.8 g/dL (14.0-18.0); Mean Corpuscular HGB Conc 33.8 g/dl (32-36); Mean Corpuscular Hemoglobin 32.8 pg (26-34); Mean Corpuscular Volume 96.9 fl (80-100); Mean Platelet Volume 11.6 fl (7.4-10.4); Platelet Count Result 166 k/mm3 (150-375); Red Blood Count 4.21 M/mm3 (4.6-6.20); Red Cell Distribution Width 13.2 % (11.5-14.5); White Blood Count 12.3 K/mm3 (4.5-10.0)
[2021-06-14 06:41] LABS: Alanine Aminotransferase 54 U/L (4-50); Albumin Level 3.7 g/dL (3.5-5.1); Alkaline Phosphatase 90 U/L (38-126); Anion Gap 6 mmol/L (8-16); Aspartate Amino Transferase 39 U/L (17-59); Bilirubin,Total 0.3 mg/dL (0.2-1.3); Blood Urea Nitrogen 7 mg/dL (9-20); Calcium 8.4 mg/dL (8.4-10.2); Carbon Dioxide 27 mmol/L (22-30); Chloride 104 mmol/L (98-107); Estimated CRCL calculation 116 ml/min; Estimated Glomerular Filt Rate > 60; Glucose 95 mg/dL (65-110); Potassium 3.8 mmol/L (3.4-5.0); Sodium 137 mmol/L (137-145)
[2021-06-14 07:13] VITALS: BP 153/80; PULSE 79; RESP 12; TEMP 36.8; O2SAT 95
[2021-06-14 08:00] VITALS: PULSE 79; RESP 12; O2SAT 95
--- NOTE | 2021-06-14 08:10 | WPDANESPN ---
Anes - Prog Note Post-Op Date/Time: 06/14/21 08:10 Cardiovascular status: normal Respiratory status: normal Airway patency: baseline Mental status: baseline Post-Op hydration status: normal Vital Signs: Last Vital Signs Temp 98.6 F 06/14/21 03:09 Pulse 82 06/14/21 03:09 Resp 16 06/14/21 03:09 BP 126/64 06/14/21 03:09 Pulse Ox 94 06/14/21 03:09 Pain Score (VAS): 06/25 I/O: Intake & Output 06/13/21 06/14/21 06/14/21 23:59 07:59 15:59 Intake Total 2550 700 Output Total 30 Balance 2550 670 Laboratory Tests 06/14/21 06:17 06/14/21 06:17 06/13/21 06/14/21 06/14/21 11:21 06:17 06:17 WBC 12.3 H RBC 4.21 L Hgb 13.8 L Hct 40.8 L MCV 96.9 MCH 32.8 MCHC 33.8 RDW 13.2 Plt Count 166 MPV 11.6 H Sodium 137 Potassium 3.8 Chloride 104 Carbon Dioxide 27 Anion Gap 6 L BUN 7 L Creatinine 0.80 Estim Creat Clear Calc 116 Estimated GFR > 60 Glucose 95 Calcium 8.4 Total Bilirubin 0.3 Direct Bilirubin 0.0 AST 39 ALT 54 H Alkaline Phosphatase 90 Total Protein 6.0 L Albumin 3.7 Blood Type O Positive Antibody Screen Negative Patient Feedback: Patient satisfied with anesthetic care.
--- NOTE | 2021-06-14 19:32 | PM.DS ---
DS: Admitting Diagnosis Discharge Date 06/14/21 Admitting Diagnosis Acute cholecystitis with cholelithiasis DS: Discharge Diagnosis Discharge Diagnosis (1) Cholelithiasis with acute cholecystitis without obstruction: Onset Date: ~06/12/21 Code(s): K80.00 - Calculus of gallbladder with acute cholecystitis without obstruction Status: Acute Assessment and Plan: patient presented to the emergency room with complaints of upper abdominal pain more to the right than the. See records. CT scan suggested during the gallbladder wall and 2 large gallstones. Ultrasound confirmed signs of thickened gallbladder wall pericholecystic fluid and acute cholecystitis. Therefore, patient was offered urgent surgical intervention since he did not have signs of biliary obstruction. Patient underwent successful laparoscopic cholecystectomy with intraoperative cholangiogram but did have a fairly inflamed gallbladder. Drain was left because the biliary anatomy was somewhat altered. Want to be sure there was any biliary leakage. Follow-up labs as the morning following the surgery and a check of the drain revealed no bilious drainage therefore it was felt he was stable for discharge. (2) Tobacco abuse: Onset Date: Unknown Code(s): Z72.0 - Tobacco use Status: Acute Assessment and Plan: Patient smokes approximately 10 cigarettes a day. I did discuss smoking cessation with him. I encouraged him to stop smoking now. He states he has. Firs loss 6 months in the past. States he is motivated to quit. He was presented with some very call just surgeons information regarding smoking cessation and how smoking affects his healing. He will make a decision upon arrival home whether not to smoke more not. (3) Elevated blood pressure reading: Onset Date: Unknown Code(s): R03.0 - Elevated blood-pressure reading, without diagnosis of hypertension Status: Acute Assessment and Plan: this is been noted on both this admission and on his admission 1 to 1/2 weeks ago when he was thought to perhaps have a ileus or small-bowel obstruction. Most readings during his hospitalization revealed elevated systolic and diastolic blood pressures. Therefore, I have recommended strongly that he obtain PCP consultation as an outpatient in begin modifications of lifestyle or medications for hypertension. I have provided him with a phone number of a primary care physician here in the [facility] and he will decide whether to call them not next week. DS: Summary Hospital Course Reason for hospitalization: Acute cholecystitis with cholelithiasis and abdominal pain Hospital Course: See records. CT scan in the ED suggested thickening of the gallbladder wall and 2 large gallstones. Ultrasound confirmed signs of thickened gallbladder wal,l pericholecystic fluid, and acute cholecystitis. Therefore, patient was offered urgent surgical intervention since he did not have signs of biliary obstruction. Patient underwent successful laparoscopic cholecystectomy with intraoperative cholangiogram but did have a fairly inflamed gallbladder. A drain was left because the biliary anatomy was somewhat altered and I wanted to be sure there was not any biliary leakage. Follow-up labs on the morning following the surgery and a check of the drain revealed no bilious drainage, therefore it was felt he was stable for discharge. The patient discharged with instructions to stop smoking, follow-up with a new PCP to check his blood pressure and talk about treatment, and follow up with me in 2 weeks for a postoperative check. He knows to follow low-fat diet for 1 week and then begin liberalize his diet if he feels well. He was provided with our recommended low-fat diet and our phone number so we can call if there postoperative problems. Time spent discussing smoking cessation with patient: 3 to 10 minutes Status at Discharge Cognitive/behavioral sta
== END 2021-06-14 15:28 | disposition home or self-care (01) ==
LOC: ANHED 07:57 → ANHSUROVER 10:35 → ANHSURGERY 06-20 13:38 → ANHSUROVER 06-20 13:39
PROVIDERS: Emergency Provider Emergency Medicine; Visit Provider Surgery
PROC: 0FT44ZZ Resection of Gallbladder, Percutaneous Endoscopic Approach (ICD-10-PCS; CPT 47562; principal; 2021-06-13 14:00)
DX: K80.00 Calculus of gallbladder with acute cholecystitis without obstruction (principal); R03.0 Elevated blood-pressure reading, without diagnosis of hypertension; F17.210 Nicotine dependence, cigarettes, uncomplicated
CPT/HCPCS: 47563; 36415; 74177; 74300; 76705; 80048; 80053; 80076; 81001; 83605; 83690; 85025; 85027; 86850; 86900; 86901; 87070; 87075; 87205; 88304; 96361; 96374; 96375; 99285; A9270; J0690; J1170; J1885; J2250; J2270; J2405; J2543; J3010; J7030; J7120; Q9966; Q9967

== ENCOUNTER 2022-04-22 12:03 | Emergency (ER) | payer OTHER, SELFPAY ==
--- NOTE | ~2022-04-22 | CT_ITS ---
EXAMINATION: CT brain wo con DATE: 04/22/2022 15:50 INDICATION: Headache. TECHNIQUE: Computed tomography (CT) of the head was performed without intravenous contrast. The mA wa s adjusted according to patient size. Iterative reconstruction technique was employed. The dose-lengt h product was 605.33 mGy-cm. COMPARISON: None FINDINGS: There is no intracranial hemorrhage, acute infarction, or abnormal intracranial mass lesion . The ventricles are normal in size. There is mild mucosal thickening in the paranasal sinuses. The o rbits are normal. The mastoid air cells are normal. IMPRESSION: 1. Normal brain. Reviewed, dictated and finalized at location A. OGEOLOGIST IMPRESSION: 1. Normal brain.
[2022-04-22 12:59] VITALS: BP 155/84; PULSE 93; RESP 20; TEMP 36.3; O2SAT 98
--- NOTE | 2022-04-22 13:35 | ED.GENADULT ---
HPI - General Adult General Chief complaint: Unspecified <Sandee Reza PA-C - Last Filed: 04/22/22 19:07> Stated complaint: high bllod pressure <Sandee Reza PA-C - Last Filed: 04/22/22 19:07> Time Seen by Provider: 04/22/22 13:34 <HILLARY Gilliam Last Filed: 04/22/22 19:07> Source: patient <HILLARY Gilliam Last Filed: 04/22/22 19:07> Mode of arrival: ambulatory <HILLARY Gilliam Last Filed: 04/22/22 19:07> Limitations: no limitations <Sandee Reza PA-C - Last Filed: 04/22/22 19:07> History of Present Illness HPI narrative: Patient is a 41-year-old male who presents the ED with report of elevated BP. Patient reports he has been having increased anxiety over the last week. He has been under increased stress lately. He noted his blood pressure to be elevated in 250s over 180s last week. He has been monitoring BP at home. Today, again noted BP to be 190s systolic, which prompted his presentation. He did report having mild headaches and some chest tightness last week, but denies any currently. Denies chest pain, difficulty breathing, blurry vision, double vision, abdominal pain, nausea, vomiting, dizziness, weakness, numbness. Patient denies a previous history of hypertension. He does not currently have a PCP. <Sandee Reza PA-C - Last Filed: 04/22/22 19:07> Related Data Allergies/adverse reactions: Allergies Allergy/AdvReac Type Severity Reaction Status Date / Time ragweed pollen Allergy Mild Watery Eye Verified 04/22/22 13:41 <HILLARY Gilliam Last Filed: 04/22/22 19:07> Review of Systems Review of Systems: CONSTITUTIONAL: Denies fever, chills, or sweats. EYES: Denies visual changes. CARDIOVASCULAR: Reports chest tightness. Denies chest pain. RESPIRATORY: Denies dyspnea. GASTROINTESTINAL: Denies abdominal pain, nausea, vomiting, or diarrhea. GENITOURINARY: Denies dysuria or hematuria. NEUROLOGIC: Reports headaches, resolved. Denies dizziness, numbness, or weakness. PSYCHIATRIC: Reports anxiety. Denies depression. <Sandee Reza PA-C - Last Filed: 04/22/22 19:07> All systems reviewed & are unremarkable except as noted in HPI and below <Sandee Reza PA-C - Last Filed: 04/22/22 19:07> PMFSH Past Medical History Medical History: Medical History (Updated 04/22/22 @ 17:30 by Sandee Reza PA-C) No pertinent past medical history <Sandee Reza PA-C - Last Filed: 04/22/22 19:07> Surgical History Surgical History: Surgical History (Updated 04/22/22 @ 14:57 by Sandee Reza PA-C) Hx laparoscopic cholecystectomy 06/13/21 <Snadee Reza PA-C - Last Filed: 04/22/22 19:07> Family History Family History: Family History Other No pertinent family history <Sandee Reza PA-C - Last Filed: 04/22/22 19:07> Social History Social History: Social History Smoking packs per day: 0.5 Smoking cigarettes per day: 10.0 Years smoked: 20 Smoking pack-years: 10.00 Smoking status: Current every day smoker Tobacco type: cigarettes Second hand tobacco smoke exposure: Yes Alcohol intake: current Alcohol use details: 2 drinks per month Substance use: never Gender identity (if verbalized by the patient): Male Spiritual care concerns: No <Sandee Reza PA-C - Last Filed: 04/22/22 19:07> Exam Narrative: GENERAL: Well appearing, well-nourished, non-toxic, in no acute distress. HEAD: Normocephalic, atraumatic. EYES: PERRL/EOMI, conjunctivae clear bilaterally. No nystagmus. NECK: Supple. No adenopathy, no masses. RESPIRATORY: Airway patent, respirations nonlabored. Clear to auscultation bilaterally, no rales, rhonchi, wheezing. CARDIOVASCULAR: Regular rate and rhythm without m
--- NOTE | 2022-04-22 13:43 | ECG_ITS ---
Measurements Intervals [place] Rate: 77 P: 26 LA: 177 QRS: -3 QRSD: 91 T: 17 QT: 376 QTc: 427 Interpretive Statements SINUS RHYTHM BASELINE ARTIFACT- V1 NORMAL ECG NO PREVIOUS ECG AVAILABLE FOR COMPARISON Electronically Signed On 04-22-2022 14:16:25 PROPERTY INSPECTOR by Quentin Smith D.O.
[2022-04-22 14:01] LABS: Basophils Absolute Auto 0.1 K/mm3 (0.0-0.1); Basophils Percent Auto 0.6 % (0.2-1.2); Eosinophils Absolute Auto 0.2 K/mm3 (0-0.3); Eosinophils Percent Auto 2.5 % (0-4.4); Hematocrit 46.4 % (42.0-52.0); Hemoglobin 15.9 g/dL (14.0-18.0); Immature Granulocyte Absolute 0.03 K/mm3 (0.00-0.031); Immature Granulocyte Percent A 0.3 % (0-0.5); Lymphocytes Absolute Auto 3.23 K/mm3 (0.9-3.2); Lymphocytes Percent Auto 35.6 % (18.3-44.2); Mean Corpuscular HGB Conc 34.3 g/dl (32-36); Mean Corpuscular Hemoglobin 33.1 pg (26-34); Mean Corpuscular Volume 96.5 fl (80-100); Mean Platelet Volume 11.5 fl (7.4-10.4); Monocytes Absolute Auto 0.7 K/mm3 (0.1-0.6); Monocytes Percent Auto 7.6 % (2.6-8.5); Neutrophils Absolute Auto 4.8 K/mm3 (1.3-6.7); Neutrophils Percent Auto 53.4 % (45.5-73.1); Platelet Count Result 227 k/mm3 (150-375); Red Blood Count 4.81 M/mm3 (4.6-6.20); Red Cell Distribution Width 13.3 % (11.5-14.5); White Blood Count 9.1 K/mm3 (4.5-10.0)
[2022-04-22 14:11] LABS: Alanine Aminotransferase 37 U/L (6-50); Albumin Level 4.4 g/dL (3.5-5.1); Alkaline Phosphatase 98 U/L (38-126); Anion Gap 14 mmol/L (8-16); Aspartate Amino Transferase 28 U/L (17-59); Bilirubin,Total 0.2 mg/dL (0.2-1.3); Blood Urea Nitrogen 8 mg/dL (9-20); Calcium 8.6 mg/dL (8.4-10.2); Carbon Dioxide 25 mmol/L (22-30); Chloride 104 mmol/L (98-107); Estimated CRCL calculation 126 ml/min; Estimated Glomerular Filt Rate > 60; Glucose 107 mg/dL (65-110); Potassium 3.7 mmol/L (3.4-5.0); Sodium 143 mmol/L (137-145)
[2022-04-22 14:23] LABS: Troponin I 0.018 ng/mL (0.000-0.034)
[2022-04-22 16:58] LABS: Appearance Urine Clear (Clear); Bilirubin Urine Negative (Negative); Blood Urine Negative (Negative); Color Urine Yellow (Yellow); Glucose Urine UA Negative (Negative); Ketones Urine Negative (Negative); Leukocyte Esterase Ur Negative LEU/UL (Negative); Nitrate Urine Negative (Negative); Protein Urine Negative (Negative); Specific Grav Ur >= 1.030 (1.001-1.035); Urobilinogen Urine 0.2 mg/dL (<2.0); pH Urine 5.5 (5.0-9.0)
[2022-04-22 17:07] LABS: Bacteria Urine Trace /hpf; Mucus Urine Rare /lpf; RBC Urine 0-2 /hpf (0-2); WBC Urine 0-3 /hpf
[2022-04-22 17:11] VITALS: BP 150/104; PULSE 69; RESP 18; O2SAT 99
[2022-04-22 17:14] LABS: Add Urine Microscopic? YES
[2022-04-22 17:22] LABS: Troponin I 0.017 ng/mL (0.000-0.034)
[2022-04-22 18:56] VITALS: BP 145/98; PULSE 80; RESP 18; O2SAT 99
== END 2022-04-22 19:05 | disposition home or self-care (01) ==
PROVIDERS: Physician Assistant; Emergency Provider Emergency Medicine
DX: I10 Essential (primary) hypertension (principal); F17.210 Nicotine dependence, cigarettes, uncomplicated
CPT/HCPCS: 36415; 70450; 80053; 81001; 84484; 85025; 93005; 99284